=== PATIENT | female | born 2000 | race African-American/Black ===

== ENCOUNTER 2021-05-22 20:19 | Observation (INO) | payer MEDICARE ==
[~2021-05-22] VITALS: Ht 180.3 cm; Wt 96.6 kg
[2021-05-22] MEDS ORDERED: PREN1TAB78 PO (21:12)
[2021-05-23] MEDS ORDERED: LACTATED RINGERS 1,000 ML IV SCH (00:30)
== END 2021-05-23 06:52 | disposition home or self-care (01) ==
LOC: 8 EST LDRP 20:19
PROVIDERS: ADMIT Obstetrics & Gynecology; ATTEND Obstetrics & Gynecology
DX: O26.893 Other specified pregnancy related conditions, third trimester (principal); R10.30 Lower abdominal pain, unspecified; R51.9 Headache, unspecified; R42 Dizziness and giddiness; O36.8130 Decreased fetal movements, third trimester, not applicable or unspecified; O62.9 Abnormality of forces of labor, unspecified; Z3A.35 35 weeks gestation of pregnancy
CPT/HCPCS: 59025; 76805; 76818; G0378; 96360; 99281

== ENCOUNTER 2021-05-29 21:37 | Observation (INO) | payer MEDICARE ==
[~2021-05-29] VITALS: Ht 180.3 cm; Wt 96.2 kg
[~2021-05-29 21:37] MED LIST: PREN1TAB78 PO
[2021-05-29] MEDS ORDERED: FERR325T6 PO (22:17)
[2021-05-29] MEDS ORDERED: CALCIUM (22:17)
== END 2021-05-29 22:43 | disposition home or self-care (01) ==
LOC: 8 EST LDRP 21:37
PROVIDERS: ADMIT Specialist; ATTEND Specialist
DX: O62.9 Abnormality of forces of labor, unspecified (principal); O26.893 Other specified pregnancy related conditions, third trimester; R10.9 Unspecified abdominal pain; Z3A.37 37 weeks gestation of pregnancy
CPT/HCPCS: 59025; G0378; 99281

== ENCOUNTER 2021-06-06 22:03 | Observation (INO) | payer MEDICARE ==
[~2021-06-06] VITALS: Ht 180.3 cm; Wt 95.3 kg
[~2021-06-06 22:03] MED LIST changes: +CALCIUM; +FERR325T6 PO
== END 2021-06-07 01:00 | disposition home or self-care (01) ==
LOC: 8 EST LDRP 22:03
PROVIDERS: ADMIT Obstetrics & Gynecology; ATTEND Obstetrics & Gynecology
DX: O42.92 Full-term premature rupture of membranes, unspecified as to length of time between rupture and onset of labor (principal); O26.893 Other specified pregnancy related conditions, third trimester; R10.9 Unspecified abdominal pain; Z3A.37 37 weeks gestation of pregnancy
CPT/HCPCS: 59025; 76805; 76818; 99281; G0378

== ENCOUNTER 2021-11-18 11:29 | Emergency (ER) | payer MEDICARE ==
[~2021-11-18] VITALS: Ht 182.9 cm; Wt 80.0 kg
[2021-11-18 11:46] VITALS: BP 120/83
== END 2021-11-18 15:21 | disposition home or self-care (01) ==
LOC: ER 11:29
DX: R05.9 Cough, unspecified (principal)
CPT/HCPCS: 99281

== ENCOUNTER 2022-07-22 16:32 | Observation (INO) | payer MEDICARE ==
[~2022-07-22] VITALS: Ht 180.3 cm; Wt 99.3 kg
[2022-07-22 18:00] LABS: CLARITY URINE CLEAR (CLEAR); COLOR URINE YELLOW (YELLOW); KETONES URINE TRACE (NEGATIVE); LEUKOCYTE ESTERASE URINE NEGATIVE (NEGATIVE); NITRITE URINE NEGATIVE (NEGATIVE); OCCULT BLOOD URINE NEGATIVE (NEGATIVE); PH URINE 6.5 (4.5-8.0); PROTEIN URINE 1+ (NEGATIVE); SPECIFIC GRAVITY URINE 1.024 (1.005-1.030)
== END 2022-07-22 19:00 | disposition home or self-care (01) ==
LOC: 8 EST LDRP 16:32
PROVIDERS: ADMIT Obstetrics & Gynecology; ATTEND Obstetrics & Gynecology
DX: O26.893 Other specified pregnancy related conditions, third trimester (principal); R10.30 Lower abdominal pain, unspecified; O62.9 Abnormality of forces of labor, unspecified; Z3A.36 36 weeks gestation of pregnancy
CPT/HCPCS: 59025; 76805; 76818; 81003; G0378; G0379

== ENCOUNTER 2022-07-29 22:43 | Observation (INO) | payer MEDICARE ==
[~2022-07-29] VITALS: Ht 180.3 cm; Wt 99.8 kg
== END 2022-07-30 00:10 | disposition home or self-care (01) ==
LOC: 8 EST LDRP 22:43
PROVIDERS: ADMIT Specialist; ATTEND Specialist
DX: O62.9 Abnormality of forces of labor, unspecified (principal); Z3A.37 37 weeks gestation of pregnancy
CPT/HCPCS: 59025; G0378; 99281

== ENCOUNTER 2022-07-30 16:56 | Observation (INO) | payer MEDICARE ==
[2022-07-30 19:10] LABS: CLARITY URINE CLEAR (CLEAR); COLOR URINE YELLOW (YELLOW); KETONES URINE 1+ (NEGATIVE); LEUKOCYTE ESTERASE URINE TRACE (NEGATIVE); NITRITE URINE NEGATIVE (NEGATIVE); OCCULT BLOOD URINE NEGATIVE (NEGATIVE); PROTEIN URINE NEGATIVE (NEGATIVE); SPECIFIC GRAVITY URINE 1.016 (1.005-1.030)
[2022-08-05] MEDS ORDERED: PNV1TABL76 PO (18:41)
[2022-08-08] MEDS ORDERED: IBUP-2030 PO (08:12)
== END 2022-07-30 20:30 | disposition home or self-care (01) ==
LOC: 8 EST LDRP 16:56
PROVIDERS: ADMIT Obstetrics & Gynecology; ATTEND Obstetrics & Gynecology
DX: O26.893 Other specified pregnancy related conditions, third trimester (principal); R10.2 Pelvic and perineal pain; O62.9 Abnormality of forces of labor, unspecified; Z3A.39 39 weeks gestation of pregnancy
CPT/HCPCS: 59025; 76815; 76818; 81003; 99281; G0378

== ENCOUNTER 2024-08-07 16:46 | Emergency (ER) | payer MEDICAID, MEDICARE ==
[~2024-08-07] VITALS: Ht 177.8 cm; Wt 71.0 kg
[~2024-08-07 16:46] MED LIST changes: -CALCIUM; -FERR325T6 PO; +IBUP-2030 PO; +PNV1TABL76 PO; -PREN1TAB78 PO
[2024-08-07 16:49] VITALS: TEMP 36.6; O2SAT 98
[2024-08-07] MEDS ORDERED: LORAZEPAM 2MG/ML INJ IM ONE (17:00)
[2024-08-07] MEDS: HALOPERIDOL LACTATE 5MG/ML VIAL IM ONE (17:04)
[2024-08-07] MEDS: DIPHENHYDRAMINE 50MG/ML VIAL IM ONE (17:04)
[2024-08-07] MEDS: LORAZEPAM 2MG/ML UD SYRINGE IM SCH (17:04)
[2024-08-07] MEDS: ZIPRASIDONE MESYLATE 20MG/VIAL IM ONE (21:35)
[2024-08-07 22:40] LABS: CLARITY URINE CLEAR (CLEAR); COLOR URINE YELLOW (YELLOW); GLUCOSE URINE NEGATIVE (NEGATIVE); KETONES URINE 1+ (NEGATIVE); LEUKOCYTE ESTERASE URINE NEGATIVE (NEGATIVE); NITRITE URINE NEGATIVE (NEGATIVE); OCCULT BLOOD URINE 3+ (NEGATIVE); PROTEIN URINE TRACE (NEGATIVE); SPECIFIC GRAVITY URINE 1.014 (1.005-1.030); UROBILINOGEN URINE 0.2 E.U./dL (0.2-1.0)
[2024-08-07 22:42] LABS: *AMPHETAMINES SCREEN URINE NEGATIVE (NEGATIVE); *BARBITURATES SCREEN URINE NEGATIVE (NEGATIVE); *BENZODIAZEPINES SCREEN URINE NEGATIVE (NEGATIVE); *COCAINE SCREEN URINE NEGATIVE (NEGATIVE)
[2024-08-07 22:43] LABS: CANNABINOID URINE SCREEN PRESUMPTIVE POSITIVE (NEGATIVE); ECSTASY MDMA SCREEN URINE NEGATIVE (NEGATIVE); METHADONE URINE SCREEN NEGATIVE (NEGATIVE); OPIATES URINE SCREEN NEGATIVE (NEGATIVE); PHENCYCLIDINE URINE SCREEN NEGATIVE (NEGATIVE)
[2024-08-07 22:50] LABS: BACTERIA URINE 1+; SQUAMOUS EPITHELIAL CELL URINE 2+ /lpf (RARE/1+); WBC URINE 0-2 /hpf (0-2)
[2024-08-08 00:09] LABS: BASOPHILS % 0.4 % (0.0-2.0); EOSINOPHILS % 1.2 % (0.0-5.0); HEMATOCRIT. 32.1 % (36.0-48.0); HEMOGLOBIN. 10.5 g/dL (12.0-16.0); LYMPHOCYTES % 26.1 % (20.0-50.0); MEAN CORPUSCULAR HEMOGLOBIN 28.7 pg (28.0-32.0); MEAN CORPUSCULAR HGB CONC 32.8 g/dL (31.0-37.0); MEAN CORPUSCULAR VOLUME 87.7 fL (81.0-99.0); MEAN PLATELET VOLUME 8.4 fl (7.4-10.4); MONOCYTES % 5.4 % (2.0-8.0); NEUTROPHILS % 66.9 % (40.0-76.0); PLATELET 209 x1000/uL (130-400); RED BLOOD CELL COUNT 3.66 mill/uL (4.2-5.4); WHITE BLOOD COUNT 6.9 x1000/uL (4.5-11.0)
[2024-08-08 00:14] LABS: CHLORIDE 112 mEq/L (98-107); POTASSIUM 3.2 mEq/L (3.5-5.1); SODIUM 143 mEq/L (136-145)
[2024-08-08 00:15] LABS: CARBON DIOXIDE 23 mEq/L (21-32)
[2024-08-08 00:16] LABS: CALCIUM 8.9 mg/dL (8.7-10.4)
[2024-08-08 00:20] LABS: CREATININE 0.8 mg/dL (0.6-1.0); GLUCOSE 84 mg/dL (70-105)
[2024-08-08 00:21] LABS: ETHANOL BLOOD < 10 mg/dL (<10); UREA NITROGEN BLOOD 8 mg/dL (9-23)
[2024-08-08 00:22] LABS: ACETAMINOPHEN < 2 ug/mL (10-30); ALANINE AMINOTRANSFERASE 12 IU/L (10-49); ALBUMIN 4.1 g/dL (3.2-4.8); ASPARTATE AMINOTRANSFERASE 38 IU/L (<34)
[2024-08-08 00:23] LABS: BILIRUBIN DIRECT < 0.1 mg/dL (<=3.0); BILIRUBIN TOTAL 0.3 mg/dL (0.1-1.0); PROTEIN TOTAL 6.3 g/dL (6.0-8.3)
[2024-08-08 00:25] LABS: HCG SCREEN NEGATIVE
[2024-08-08] MEDS: POTASSIUM CHLORIDE 20MEQ/PACKET PO ONE (00:54)
[2024-08-08] MEDS ORDERED: HYDROXYZINE 25MG TABLET PO PRN (11:30)
[2024-08-08 15:59] VITALS: BP 124/91; PULSE 96; RESP 14; O2SAT 100
== END 2024-08-08 15:50 ==
LOC: ER 16:46
DX: R45.851 Suicidal ideations (principal); R41.0 Disorientation, unspecified; R45.1 Restlessness and agitation; F41.9 Anxiety disorder, unspecified; Z79.899 Other long term (current) drug therapy; Z20.822 Contact with and (suspected) exposure to COVID-19
CPT/HCPCS: 80076; 80305; 80048; 81003; 80307; 80329; 80320; 84703; 85025; 36415; 96372; 99291; 87426; J1200; J1630; J2060; J3486; Z7610; G0480